=== PATIENT | male | born 1965 | race African-American/Black ===

== ENCOUNTER 2024-01-14 02:46 | Inpatient (IN) | payer OTHER ==
[~2024-01-14] VITALS: Ht 193 cm; Wt 130.0 kg
[2024-01-14 03:01] VITALS: O2SAT 100
[2024-01-14] MEDS: MORPHINE SULFATE 4 MG/ML INJ (FOR IV/IM USE) IV STA (03:37)
[2024-01-14] MEDS: FAMOTIDINE 20MG/2ML VIAL IV STA (03:38)
[2024-01-14] MEDS: ONDANSETRON HCL 4MG/2ML INJ IV STA (03:38)
[2024-01-14] MEDS: SODIUM CHLORIDE 0.9% 1,000 ML IV ONE (03:38)
[2024-01-14 03:41] LABS: BASOPHILS % 0.6 % (0.0-2.0); EOSINOPHILS % 0.4 % (0.0-5.0); HEMATOCRIT. 42.7 % (42.0-52.0); LYMPHOCYTES % 26.4 % (20.0-50.0); MEAN CORPUSCULAR HEMOGLOBIN 29.6 pg (28.0-32.0); MEAN CORPUSCULAR VOLUME 84.5 fL (80.0-94.0); MEAN PLATELET VOLUME 11.2 fl (7.4-10.4); MONOCYTES % 3.8 % (2.0-8.0); NEUTROPHILS % 68.8 % (40.0-76.0); PLATELET 121 x1000/uL (130-400); RED BLOOD CELL COUNT 5.06 mill/uL (4.7-6.1); RED CELL DISTRIBUTION WIDTH 15.8 % (11.6-14.6); WHITE BLOOD COUNT 7.9 x1000/uL (4.5-11.0)
[2024-01-14 03:53] LABS: CHLORIDE 104 mEq/L (98-107); SODIUM 139 mEq/L (136-145)
[2024-01-14 03:54] LABS: CALCIUM 9.9 mg/dL (8.7-10.4); CARBON DIOXIDE 22 mEq/L (21-32)
[2024-01-14 03:59] LABS: CREATININE 1.8 mg/dL (0.6-1.3); GLUCOSE 132 mg/dL (70-105); UREA NITROGEN BLOOD 16 mg/dL (9-23)
[2024-01-14 04:20] LABS: ETHANOL BLOOD < 10 mg/dL (<10)
[2024-01-14] MEDS ORDERED: ACETAMINOPHEN 325MG TABLET PO PRN ×2 (06:30)
[2024-01-14] MEDS ORDERED: ONDANSETRON HCL 4MG/2ML INJ IV PRN (06:30)
[2024-01-14] MEDS ORDERED: MAGNESIUM/ALUMINUM HYDROXIDE/SIMETHICONE 30ML UDC PO PRN (06:30)
[2024-01-14] MEDS ORDERED: IPRATROPIUM/ALBUTEROL 0.5-3(2.5)MG/3ML NEB HHN PRN (06:30)
[2024-01-14] MEDS ORDERED: DOCUSATE SODIUM 100MG CAPSULE PO PRN (06:30)
[2024-01-14] MEDS ORDERED: HYDRALAZINE 20MG/ML VIAL IV PRN (06:30)
[2024-01-14] MEDS ORDERED: GUAIFENESIN 200MG/10ML SUGAR FREE UDC PO PRN (06:30)
[2024-01-14] MEDS: DEXT 5%/0.45% NACL 1000ML 1,000 ML IV SCH (06:40)
[2024-01-14 07:18] LABS: BASOPHILS % 0.2 % (0.0-2.0); EOSINOPHILS % 0.1 % (0.0-5.0); HEMATOCRIT. 42.4 % (42.0-52.0); HEMOGLOBIN. 14.4 g/dL (14.0-18.0); LYMPHOCYTES % 11.2 % (20.0-50.0); MEAN CORPUSCULAR HEMOGLOBIN 28.8 pg (28.0-32.0); MEAN CORPUSCULAR HGB CONC 33.9 g/dL (31.0-37.0); MEAN PLATELET VOLUME 10.7 fl (7.4-10.4); MONOCYTES % 3.9 % (2.0-8.0); NEUTROPHILS % 84.6 % (40.0-76.0); PLATELET 116 x1000/uL (130-400); RED BLOOD CELL COUNT 4.99 mill/uL (4.7-6.1); WHITE BLOOD COUNT 10.1 x1000/uL (4.5-11.0)
[2024-01-14 07:22] LABS: CHLORIDE 105 mEq/L (98-107); POTASSIUM 4.3 mEq/L (3.5-5.1); SODIUM 140 mEq/L (136-145)
[2024-01-14 07:23] LABS: CALCIUM 9.6 mg/dL (8.7-10.4); CARBON DIOXIDE 23 mEq/L (21-32)
[2024-01-14 07:28] LABS: CREATININE 1.7 mg/dL (0.6-1.3); GLUCOSE 116 mg/dL (70-105); UREA NITROGEN BLOOD 12 mg/dL (9-23)
[2024-01-14 07:29] LABS: ETHANOL BLOOD < 10 mg/dL (<10); LDL CHOLESTEROL 27 mg/dL (5-100)
[2024-01-14 07:30] LABS: CHOLESTEROL 158 mg/dL (<200); HDL CHOLESTEROL < 20 mg/dL (>55)
[2024-01-14 07:32] LABS: T4 FREE 1.11 ng/dL (0.89-1.76); THYROID STIMULATING HORMONE 0.67 uIU/mL (0.55-4.78)
[2024-01-14 07:39] LABS: TRIGLYCERIDE 1286 mg/dL (0-150)
[2024-01-14] MEDS: PANTOPRAZOLE SODIUM 40 MG/VIAL IV SCH (08:52)
[2024-01-14] MEDS: ENOXAPARIN 30MG/0.3ML SYR SUBCUT SCH (08:52)
[2024-01-14 12:20] LABS: ALANINE AMINOTRANSFERASE 27 IU/L (10-49); ALBUMIN 4.6 g/dL (3.2-4.8); ASPARTATE AMINOTRANSFERASE 31 IU/L (<34); BILIRUBIN DIRECT 0.2 mg/dL (<=3.0); BILIRUBIN TOTAL 0.4 mg/dL (0.1-1.0); PROTEIN TOTAL 7.3 g/dL (6.0-8.3)
[2024-01-14 19:12] LABS: TROPONIN I HIGH SENSITIVITY 4 ng/L (3.0-53)
[2024-01-14 19:13] LABS: CREATINE KINASE 302 IU/L (46-171)
[2024-01-14 21:41] VITALS: O2SAT 99
[2024-01-14 22:21] LABS: CREATINE KINASE 263 IU/L (46-171)
[2024-01-14 22:30] LABS: TROPONIN I HIGH SENSITIVITY < 4 ng/L (3.0-53)
[2024-01-14 23:35] VITALS: BP 119/85; PULSE 88; RESP 20; TEMP 36.0844
== END 2024-01-15 00:05 | disposition left against medical advice (07) | DRG 392 ==
LOC: ER 02:46 → 5WST 05:48 → EDBEDREQSVC 11:38 → 6WST 23:22
PROVIDERS: ADMIT Hospitalist; ATTEND Hospitalist
DX: K29.00 Acute gastritis without bleeding (principal); N17.9 Acute kidney failure, unspecified; N20.0 Calculus of kidney; Z53.29 Procedure and treatment not carried out because of patient's decision for other reasons; D69.6 Thrombocytopenia, unspecified; K40.90 Unilateral inguinal hernia, without obstruction or gangrene, not specified as recurrent; F10.20 Alcohol dependence, uncomplicated; Y90.9 Presence of alcohol in blood, level not specified; N18.9 Chronic kidney disease, unspecified
CPT/HCPCS: 36415; 74176; 76700; 80048; 80061; 80076; 80320; 82550; 83605; 84439; 84443; 84484; 85025; 99285; J1650; J2270; J2405; J2470; J3490; J7030; G0480